=== PATIENT | male | born 1960 | race Caucasian/White ===

== ENCOUNTER 2019-03-08 09:41 | Emergency (ER) | payer OTHER, MEDICAID ==
--- NOTE | 2019-03-08 10:37 | ER Document Report ---
ED Medical Screen (RME) - General Chief Complaint: Foot Pain Stated Complaint: FOOT PAIN Time Seen by Provider: 03/08/19 10:30 Primary Care Provider: MICHAEL GUPTA MD [Primary Care Provider] - Follow up as needed Mode of Arrival: Ambulatory Information source: Patient TRAVEL OUTSIDE OF THE [place] IN LAST 30 DAYS: No - HPI Patient complains to provider of: RIGHT FOOT PAIN Notes: 03/08/19 10:37 With ulcer to the right heel. The patient has a history of type 2 diabetes. He states that he has had an ulcer to the right heel for little over a month. He was on antibiotics which just finished on Friday. States that he continues to have some burning pain and there is a little bit of drainage coming from the area so he wanted to have it evaluated. No fever. Exam No distress, nontoxic-appearing. Right heel with some thickened skin is small break in the skin. Mild tenderness to palpation. There is no surrounding erythema, no purulent drainage. Plan CBC, CMP, foot x-ray An initial examination was made on the patient as part of the triage process, and it was determined a more comprehensive evaluation was necessary. Initial labs were ordered and patient was transferred to another provider in the ED who assumed care and finished evaluation and plan. - Related Data Allergies/Adverse Reactions: acetaminophen [From Vicodin] Allergy (Verified 04/12/15 13:05) hydrocodone bitartrate [From Vicodin] Allergy (Verified 04/12/15 13:05) Past Medical History - Social History Chew tobacco use (# tins/day): No Frequency of alcohol use: None Drug Abuse: None - Past Medical History Cardiac Medical History: Reports: Hx Heart Attack, Hx Hypercholesterolemia, Hx Hypertension Denies: Hx Coronary Artery Disease Pulmonary Medical History: Reports: Hx Asthma, Hx COPD Denies: Hx Bronchitis, Hx Pneumonia Neurological Medical History: Denies: Hx Cerebrovascular Accident, Hx Seizures Endocrine Medical History: Reports: Hx Diabetes Mellitus Type 2 - Diet controlled Renal/ Medical History: Denies: Hx Peritoneal Dialysis Musculoskeltal Medical History: Denies Hx Arthritis Skin Medical History: Reports Hx MRSA Past Surgical History: Reports: Hx Orthopedic Surgery - Immunizations Hx Diphtheria, Pertussis, Tetanus Vaccination: Yes - ?Tetanus only Physical Exam - Vital signs Vitals: Temp Pulse Resp BP Pulse Ox 98.2 F 95 16 141/66 H 94 03/08/19 09:51 03/08/19 09:51 03/08/19 09:51 03/08/19 09:51 03/08/19 09:51 Course - Vital Signs Vital signs: Temp Pulse Resp BP Pulse Ox 98.2 F 95 16 141/66 H 94 03/08/19 09:51 03/08/19 09:51 03/08/19 09:51 03/08/19 09:51 03/08/19 09:51 Doctor's Discharge - Discharge Referrals: MICHAEL GUPTA MD [Primary Care Provider] - Follow up as needed
[2019-03-08 10:54] LABS: ABSOLUTE BASOPHILS # (AUTO) 0.1 10^3/uL (0.0-0.2); ABSOLUTE EOSINOPHILS # (AUTO) 0.1 10^3/uL (0.0-0.6); ABSOLUTE MONOCYTES (AUTO) 0.4 10^3/uL (0.1-1.4); ABSOLUTE NEUT (AUTO) 6.6 10^3/uL (1.7-8.2); BASOPHILS % (AUTO) 0.8 % (0-2); EOSINOPHILS % (AUTO) 1.5 % (0-6); HEMOGLOBIN 15.7 g/dL (13.5-17.0); MEAN CORPUSCULAR HEMOGLOBIN 29.6 pg (27.0-33.4); MEAN CORPUSCULAR HGB CONC 34.1 g/dL (32.0-36.0); MEAN CORPUSCULAR VOLUME 87 fl (80-97); MONOCYTES % (AUTO) 4.4 % (3-13); PLATELET COUNT 162 10^3/uL (150-450); RED CELL DISTRIBUTION WIDTH 13.4 % (11.5-14.0); SEGMENTED NEUTROPHILS % (AUTO) 64.3 % (42-78); TOTAL CELLS COUNTED % (AUTO) 100 %; WHITE BLOOD COUNT 10.2 10^3/uL (4.0-10.5)
[2019-03-08 11:20] LABS: ALANINE AMINOTRANSFERASE 27 U/L (21-72); ALBUMIN 4.4 g/dL (3.5-5.0); ALKALINE PHOSPHATASE 122 U/L (38-126); ANION GAP 9 (5-19); ASPARTATE AMINO TRANSFERASE 18 U/L (17-59); BILIRUBIN,DIRECT 0.3 mg/dL (0.0-0.4); BILIRUBIN,TOTAL 0.4 mg/dL (0.2-1.3); BLOOD UREA NITROGEN 13 mg/dL (7-20); CALCIUM 9.7 mg/dL (8.4-10.2); CARBON DIOXIDE 30 mmol/L (22-30); CHLORIDE 100 mmol/L (98-107); GLUCOSE 254 mg/dL (75-110); POTASSIUM 4.5 mmol/L (3.6-5.0); SODIUM 139.2 mmol/L (137-145); TOTAL PROTEIN 7.4 g/dL (6.3-8.2)
--- NOTE | 2019-03-08 12:01 | ER Document Report ---
ED Extremity Problem, Lower - General Chief Complaint: Foot Pain Stated Complaint: FOOT PAIN Time Seen by Provider: 03/08/19 10:30 Primary Care Provider: MICHAEL GUPTA MD [Primary Care Provider] - Follow up as needed Mode of Arrival: Ambulatory Information source: Patient Notes: 58-year-old male with a history of diabetes with a right foot "ulcer" to the base of his heel. He has followed up with the clinic and then with the vascular surgeon Dr. Sheela Gupta. He has seen Dr. Gupta 3 times, one time per week. Completed a course of antibiotics this past Friday. He does not remember the name of antibiotics. Patient denies any fevers or vomiting. Patient states he still has sensation to the foot. He does not believe any foreign bodies are present. He has not received any imaging. Denies any swelling, increased redness, but states that he still has some pain when he walks it is difficult for him to sleep. TRAVEL OUTSIDE OF THE [place] IN LAST 30 DAYS: No - HPI Patient complains to provider of: Pain - Related Data Allergies/Adverse Reactions: acetaminophen [From Vicodin] Allergy (Verified 04/12/15 13:05) hydrocodone bitartrate [From Vicodin] Allergy (Verified 04/12/15 13:05) Past Medical History - General Information source: Patient - Social History Smoking Status: Current Every Day Smoker Chew tobacco use (# tins/day): No Frequency of alcohol use: None Drug Abuse: None Family History: Reviewed & Not Pertinent Patient has suicidal ideation: No Patient has homicidal ideation: No - Past Medical History Cardiac Medical History: Reports: Hx Heart Attack, Hx Hypercholesterolemia, Hx Hypertension Denies: Hx Coronary Artery Disease Pulmonary Medical History: Reports: Hx Asthma, Hx COPD Denies: Hx Bronchitis, Hx Pneumonia Neurological Medical History: Denies: Hx Cerebrovascular Accident, Hx Seizures Endocrine Medical History: Reports: Hx Diabetes Mellitus Type 2 - Diet controlled Renal/ Medical History: Denies: Hx Peritoneal Dialysis Musculoskeletal Medical History: Denies Hx Arthritis Skin Medical History: Reports Hx MRSA Past Surgical History: Reports: Hx Orthopedic Surgery - Immunizations Hx Diphtheria, Pertussis, Tetanus Vaccination: Yes - ?Tetanus only Review of Systems - Review of Systems Constitutional: denies: Fever Cardiovascular: denies: Chest pain Respiratory: denies: Cough, Short of breath Gastrointestinal: denies: Vomiting Musculoskeletal: denies: Leg swelling Skin: denies: Rash Neurological/Psychological: Other - no slurred speech -: Yes All other systems reviewed and negative Physical Exam - Vital signs Vitals: Temp Pulse Resp BP Pulse Ox 98.2 F 95 16 141/66 H 94 03/08/19 09:51 03/08/19 09:51 03/08/19 09:51 03/08/19 09:51 03/08/19 09:51 Notes: Reviewed vital signs and nursing note as charted by RN. CONSTITUTIONAL: Alert and oriented and responds appropriately to questions. Well-appearing; well-nourished HEAD: Normocephalic; atraumatic EYES: Sclerae non-icteric ENT: Normal nose; no rhinorrhea; moist mucous membranes; pharynx without lesions noted NECK: Supple without meningismus; non-tender CARD: Regular rate and rhythm; no murmurs; symmetric distal pulses RESP: Normal chest excursion without splinting or tachypnea; breath sounds clear and equal bilaterally ABD/GI: Normal bowel sounds; non-distended; soft, non-tender; no palpable organomegaly or masses BACK: The back appears normal EXT: Patient has some swelling with an area of some very mild fluctuance and crusting to the base of the right heel. No surrounding erythema or induration. Patient has sensation intact to light touch with normal pulses with good proprioception SKIN: See above NEURO: CN 2-12 intact; 5/5 bilateral upper and lower extremity strength with sensation intact to light touch PSYCH: The patient's mood and manner are appropriate. Grooming and personal hygiene are appropriate. Course - Re-evaluation Re-evalutation: 03/08/19 12:01 Given the history and physical examination, we will order labs, x-ray of the foot, to assess for the possibility of a foreign body or osteomyelitis. 03/08/19 13:39 X-ray shows no foreign body or obvious osteomyelitis. I tried to use a needle to see if I could aspirate any fluid for possible underlying small abscess. The skin is very thick and crusty. No discharge was provided. I was unable to send a wound culture. We called the patient's pharmacy and found out that the patient previously was taking clindamycin. I gave the patient a doxycycline tablet here. I tried to call Dr. Sheela Gupta, the provider the patient was seen previously but was unable to contact him. I was able to call the wound care center and talk to the body line finisher Dr. trevino. He has taken the patient's name and states that he will see the patient this week. Patient is very comfortable with this plan. No change in examination. Patient will be discharged home with strict return precautions, crutches for comfort, and follow-up with the body line finisher. - Vital Signs Vital signs: Temp Pulse Resp BP Pulse Ox 98.2 F 95 16 141/66 H 94 03/08/19 09:51 03/08/19 09:51 03/08/19 09:51 03/08/19 09:51 03/08/19 09:51 - Laboratory Result Diagrams: 03/08/19 10:42 03/08/19 10:42 Laboratory results interpreted by me: 03/08/19 10:42 Glucose 254 H Procedures - Incision and Drainage Right Foot Type: Simple Anesthetic type: 1% Lidocaine Blade size: 11 I&D procedure: Chlorprep applied Incision Method: Incision made with needle Amount/type of drainage: 0 Discharge - Discharge Clinical Impression: Wound of right foot Condition: Good Disposition: HOME, SELF-CARE Additional Instructions: Come back immediately for any increased pain, swelling, redness, fever, vomiting, or any other acute problems. Please take the doxycycline as recorded. Please follow-up with Dr. Trevino as we have discussed. Address: [address], [place] [id number] Prescriptions: Doxycycline Hyclate 100 mg PO BID 10 Days #20 capsule Referrals: MICHAEL GUPTA MD [Primary Care Provider] - Follow up as needed
--- NOTE | 2019-03-08 12:08 | RADIOLOGY REPORT (SQ) ---
EXAM DESCRIPTION: FOOT RIGHT COMPLETE COMPLETED DATE/TIME: 03/08/2019 11:49 am REASON FOR STUDY: ULCER RIGHT HEEL, HX OF DM COMPARISON: None. NUMBER OF VIEWS: Three views. TECHNIQUE: AP, lateral and oblique without weight bearing radiographic images acquired of the right foot. LIMITATIONS: None. FINDINGS: MINERALIZATION: Normal. BONES: No acute fracture or dislocation. No worrisome bone lesions. No significant osteophytes. JOINTS: No erosions. No alen-articular osteopenia. No chondrocalcinosis. SOFT TISSUES: No swelling. No calcifications. OTHER: No other significant finding. IMPRESSION: NO SIGNIFICANT RADIOGRAPHIC ABNORMALITY. TECHNICAL DOCUMENTATION: JOB ID: [id number] [employer]- All Rights Reserved Reading location - IP/workstation name: [email or web address]
[2019-03-08] MEDS ORDERED: LIDOCAINE 1%/EPINEPHRINE INJ 20 ML VIAL INJ ONE (12:24)
[2019-03-08] MEDS ORDERED: DOXYCYCLINE HYCLATE 100 MG TABLET PO ONE (13:36)
[2019-03-08 14:05] VITALS: BP 154/84
== END 2019-03-08 14:08 | disposition home or self-care (01) ==
LOC: ER 09:41
PROC: 0H9MXZZ Drainage of Right Foot Skin, External Approach (ICD-10-PCS; principal; 2019-03-08)
DX: E11.621 Type 2 diabetes mellitus with foot ulcer (principal); L97.419 Non-pressure chronic ulcer of right heel and midfoot with unspecified severity; I10 Essential (primary) hypertension; J44.9 Chronic obstructive pulmonary disease, unspecified
CPT/HCPCS: 99283; 36415; 85025; 80053; 73630; 10060; J3490

== ENCOUNTER → 2019-12-01 | Outpatient (CLI) | payer MEDICARE, MEDICAID ==
--- NOTE | 2019-12-01 09:38 | RADIOLOGY REPORT (SQ) ---
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 RADIATION DOSE: NA LIMITATIONS: none FINDINGS: LUNGS AND PLEURA: No opacities, masses or pneumothorax. No pleural effusion. MEDIASTINUM AND HILAR STRUCTURES: No masses or contour abnormalities. HEART AND VASCULAR STRUCTURES: Heart normal size. No evidence for failure. BONES: No acute findings. HARDWARE: None in the chest. OTHER: No other significant finding. IMPRESSION: No focal consolidation or other evidence of acute intrathoracic process. TECHNICAL DOCUMENTATION: JOB ID: [id number] 2010 [employer]- All Rights Reserved Reading location - IP/workstation name: [email or web address]
== END ==
LOC: RAD 09:10
PROVIDERS: ATTEND Physician Assistant
DX: J41.1 Mucopurulent chronic bronchitis (principal)
CPT/HCPCS: 71046